=== PATIENT | female | born 2000 | race Caucasian/White ===

== ENCOUNTER 2021-12-02 12:20 | Emergency (ER) | payer SELFPAY ==
[2021-12-02 13:11] LABS: HEMOGLOBIN 14.3 gm/dl (12.3-15.3); RED BLOOD COUNT 4.61 M/UL (4.00-5.10); WHITE BLOOD COUNT 9.6 K/UL (4.5-11.0)
[2021-12-02 13:26] LABS: BUN/CREATININE RATIO 10 (0-10)
[2021-12-02 14:12] LABS: BORDETELLA PARAPERTUSSIS Not Detected (Not Detectd); BORDETELLA PERTUSSIS Not Detected (Not Detectd); CHLAMYDIA PNEUMONIAE Not Detected (Not Detectd); CORONAVIRUS HKU1 Not Detected (Not Detectd); CORONAVIRUS NL63 Not Detected (Not Detectd); CORONAVIRUS OC43 Not Detected (Not Detectd); CORONOAVIRUS 229E Not Detected (Not Detectd); HUMAN METAPNEUMOVIRUS Not Detected (Not Detectd); HUMAN RHINOVIRUS/ENTEROVIRUS Not Detected (Not Detectd); INFLUENZA A Not Detected (Not Detectd); INFLUENZA B Not Detected (Not Detectd); MYCOPLASMA PNEUMONIAE Not Detected (Not Detectd); PARAINFLUENZA VIRUS 1 Not Detected (Not Detectd); PARAINFLUENZA VIRUS 2 Not Detected (Not Detectd); PARAINFLUENZA VIRUS 3 Not Detected (Not Detectd); PARAINFLUENZA VIRUS 4 Not Detected (Not Detectd); RESPIRATORY SYNCYTIAL VIRUS Not Detected (Not Detectd)
[2021-12-02 15:23] LABS: SARS-CoV-2 NOT DETECTED (Not Detectd)
[2021-12-02] MEDS ORDERED: ZYRTEC10 MG PO (16:08)
[2021-12-02] MEDS ORDERED: ZOFRAN ODT 4 MG4 MG GT (16:08)
[2021-12-02] MEDS ORDERED: DELSYM30 MG/5 ML PO (16:08)
[2021-12-02] MEDS ORDERED: FLONASE 0.05% N16 GM (16:08)
== END 2021-12-02 17:10 | disposition home or self-care (01) ==
LOC: ER1 12:20
PROVIDERS: Physician Assistant Medical
DX: O99.511 Diseases of the respiratory system complicating pregnancy, first trimester (principal); J06.9 Acute upper respiratory infection, unspecified; O10.911 Unspecified pre-existing hypertension complicating pregnancy, first trimester; Z79.899 Other long term (current) drug therapy; Z3A.11 11 weeks gestation of pregnancy; Z20.822 Contact with and (suspected) exposure to COVID-19
CPT/HCPCS: 80053; 81001; 83605; 85025; 87081; 87633; 87880; 96374; 96375; 99283; J2405; J2765; J7030